=== PATIENT | female | born 1960 | race Caucasian/White ===

== ENCOUNTER 2017-09-07 07:25 | Day surgery (SDC) | payer OTHER ==
[~2017-09-07] VITALS: Ht 157.5 cm; Wt 69.0 kg
[~2017-09-07 07:25] MED LIST: LISINOPRIL10 MG PO; ZANTAC150 MG PO
--- NOTE | 2017-09-07 09:30 | NUR ---
09/07/17 0930 Maribel Dexter TO PACU, EASILY AWAKENED. RESP EVEN UNLABORED. OCC SNORING NOTED.
--- NOTE | 2017-09-07 10:56 | NUR ---
LE 1000 PT RETURNED FROM PACU VERY SLEEPY AND REPOSITIONED HERSELF TO L SIDE. VITAL SIGNS TAKEN. CALL LITE IN PLACE.
--- NOTE | 2017-09-07 11:26 | NUR ---
PT UP AND STEADY ON FEET. PT REPORTS NAUSEA AND HAS 100ML OF CLEAR EMISIS. PT DRESSES SELF AND IS BACK TO BED. PT ADVISED TO REST AND TRY PO AGAIN WHEN NAUEA DISIPATES. PT REPORTS "FEELING MUCH BETTER." AT BEDSIDE. BED RAILS UP. CALL LIGHT WITHIN REACH.
--- NOTE | 2017-09-07 11:45 | NUR ---
LEFT TO GET CAR AND PULL IT TO THE FRONT OF HOSPITAL. PT ASKED, WHEN ALONE IN ROOM IF SHE HAS ANY CONCERNS FOR HER SAFTEY AT HOME. PT DENIES CONCERNS AND STATES "NO, THATS NOT THE PROBLEM AT ALL." PT ASKED WHY SHE IS RELUCTANT TO GO HOME, PT STATES "I'M JUST SO TIRED." PT REASSURED THAT SHE IS LIKELY TO FEEL TIRED THE REMAINDER OF THE DAY AND THE BEST THING FOR HER IS TO GO HOME AND REST. PT ENCOURAGED TO CONTACT HER PROVIDER IF ANYTHING CHANGES. PT VERBALIZES UNDERSTANDING.
--- NOTE | 2017-09-07 11:53 | NUR ---
PT CALL LIGHT ON. PT STATES SHE IS READY TO GO HOME. PT REPORTS MILD NAUSEA THAT "IS MUCH BETTER." PT TRANSFERES SELF TO WHEEL CHAIR. PT VERBALIZES UNDERSTANDING OF DISCHARGE INSTRUCTIONS AND WHEN TO CALL THE DOCTOR.
--- NOTE | 2017-09-15 10:10 | OR ---
[facility] [address], [place] [address] Signed DATE OF OPERATION: 09/07/2017 SURGEON: Tyrone Carrillo MD UPPER AND LOWER ENDOSCOPY REPORT PREOPERATIVE DIAGNOSES: 1. Heartburn. 2. Chest pain. 3. Paternal great grandfather with colon cancer in his 90s. 4. Paternal grandmother with colon cancer at age 83. 5. Paternal aunt with colon polyps. POSTOPERATIVE DIAGNOSES: 1. Small type 1 hiatal hernia. 2. Diffuse punctate hemorrhagic gastritis. 3. 3 mm polyps x2 in mid and proximal rectum. 4. Sigmoid diverticulum x1. PROCEDURES: 1. EGD with CLOtest and biopsies of the antrum and GE junction. 2. Colonoscopy with hot biopsy. ESTIMATED BLOOD LOSS: None. 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 She was asked to see me for upper and lower endoscopy. She is describing heartburn and chest pain. She said without Zantac, she is miserable. She has had it for years. Also, her paternal great grandfather developed colon cancer and from that colon cancer at age 96. Her paternal grandmother had colon cancer at age 83. A paternal aunt also had colonic polyps removed. Jeannette has no lower GI complaints. She has never had a previous colonoscopy. In the office, I gave Jeannette pamphlets on both upper and lower endoscopy. However, she is quite familiar with both procedures. She understands the risks including, but not limited to gas, bloating, crampy abdominal pain, bleeding, perforation requiring surgery, and missed diagnosis. She also understands the need for IV conscious sedation. She had expressed understanding and wished to proceed. PROCEDURE NOTE: Electronically Signed By: TYRONE CARRILLO MD 09/15/17 1010 PATIENT NAME: JEANNETTE SARMIENTO OPERATIVE REPORT DATE OF : 62 PHYSICIAN: TYRONE CARRILLO MD REPORT #: [id number] REPORT IS CONFIDENTIAL AND NOT TO BE RELEASED WITHOUT AUTHORIZATION [facility] [address], [place] [address] Signed Jeannette was taken into our endoscopy suite and placed in the supine semi-recumbent position. The posterior oropharynx was anesthetized with Hurricaine spray. A bite block was utilized for the case. She was given a total of 12 mg of Versed and 200 mcg of fentanyl to cover both procedures. The adult gastroscope was introduced and advanced under direct visualization of the camera out into the third portion of the duodenum without difficulty. Her duodenum and pyloric channel were unremarkable. The stomach showed diffuse punctate hemorrhagic gastritis. We took a biopsy of the antrum for CLOtest as well as pathologic review. We took pictures for photodocumentation. Upon retroflexion of scope, she has just a small type 1 hiatal hernia. No gastric or esophageal varices. No ulcerations. The scope was withdrawn up through the area of the GE junction, which was compliant without stricture. She shows minimal to moderate destruction at the Z-line. There was some irritation around the Z-line, so we took a biopsy in this area as well. No Velásquez's mucosa, no distal esophagitis. The middle and upper esophagus were unremarkable. After this, the gas was suctioned out and the gastroscope removed. Jeannette tolerated the procedure quite well. Jeannette was then rotated into the left lateral decubitus position. She was maintained on IV sedation with Versed and fentanyl. A digital rectal exam was performed and this was unremarkable. The adult colonoscope was introduced and advanced all the way up into the cecum under direct visualization of the camera. Her prep was good. The scope was then slowly withdrawn. Again, we took pictures for photodocumentation. I saw just a single diverticulum as I came through the sigmoid colon. In the rectum, I took out 2 tiny 3 mm polyps, 1 in the proximal rectum and 1 in the mid rectum. Upon retroflexion of scope, she had just a tiny internal anal skin tag. No evidence of any internal hemorrhoids. After this, the gas was suctioned out and the colonoscope removed. Jeannette tolerated the procedure quite well. RECOMMENDATIONS: I will see Jeannette back in my office in 7-14 days to review her results. Given her family history, she will need colonoscopy every 5 years. It looks like she will need to stay on the Zantac. Tyrone Carrillo MD Electronically Signed By: TYRONE CARRILLO MD 09/15/17 1010 PATIENT NAME: JEANNETTE SARMIENTO OPERATIVE REPORT DATE OF : 62 PHYSICIAN: TYRONE CARRILLO MD REPORT #: [id number] REPORT IS CONFIDENTIAL AND NOT TO BE RELEASED WITHOUT AUTHORIZATION [address] [address] Signed ALB/MODL /[id number] cc: LEE Ross Electronically Signed By: TYRONE CARRILLO MD 09/15/17 1010 PATIENT NAME: JEANNETTE SARMIENTO OPERATIVE REPORT DATE OF : 62 PHYSICIAN: TYRONE CARRILLO MD REPORT #: [id number] REPORT IS CONFIDENTIAL AND NOT TO BE RELEASED WITHOUT AUTHORIZATION
== END 2017-09-07 11:45 | disposition home or self-care (01) ==
LOC: DS 07:25
PROVIDERS: Colon & Rectal Surgery
PROC: 0DB68ZX Excision of Stomach, Via Natural or Artificial Opening Endoscopic, Diagnostic (ICD-10-PCS; 2017-09-07)
PROC: 0DBP8ZX Excision of Rectum, Via Natural or Artificial Opening Endoscopic, Diagnostic (ICD-10-PCS; principal; 2017-09-07 09:00)
PROC: 0DB48ZX Excision of Esophagogastric Junction, Via Natural or Artificial Opening Endoscopic, Diagnostic (ICD-10-PCS; 2017-09-07 09:00)
DX: Z12.11 Encounter for screening for malignant neoplasm of colon (principal); K21.0 Gastro-esophageal reflux disease with esophagitis; K31.9 Disease of stomach and duodenum, unspecified; K57.30 Diverticulosis of large intestine without perforation or abscess without bleeding; K44.9 Diaphragmatic hernia without obstruction or gangrene; I10 Essential (primary) hypertension; F17.210 Nicotine dependence, cigarettes, uncomplicated; Z80.0 Family history of malignant neoplasm of digestive organs; Z83.71 Family history of colonic polyps; Z87.11 Personal history of peptic ulcer disease; Z85.3 Personal history of malignant neoplasm of breast; Z90.89 Acquired absence of other organs; Z90.12 Acquired absence of left breast and nipple; Z88.1 Allergy status to other antibiotic agents; Z88.8 Allergy status to other drugs, medicaments and biological substances; Z79.899 Other long term (current) drug therapy; Z98.890 Other specified postprocedural states
CPT/HCPCS: 86677; 99152; 99153; J2250; J3010